=== PATIENT | female | born 1945 | race Caucasian/White ===

== ENCOUNTER 2024-05-14 17:12 | Emergency (ER) | payer MEDICARE, SELFPAY ==
[2024-05-14] VITALS (14 sets, daily range): BP systolic 96–152; BP diastolic 54–95; PULSE 83–94; O2SAT 95–100; BMI 32.0
--- NOTE | 2024-05-14 17:17 | ECG_ITS ---
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
--- NOTE | 2024-05-14 17:18 | ED_ITS ---
HPI - Neuro Symptoms/Deficit General Chief Complaint: Neuro Symptoms/Deficit Stated Complaint: CVA Time Seen by Provider: 05/14/24 17:16 Source: patient Mode of arrival: ambulance Limitations: no limitations History of Present Illness HPI Narrative: 78-year-old female presents from [facility] for left-sided facial numbness. At about 3:40 PM she saw some squiggles and then she developed a headache. She has a history of migraine headaches and sees a neurologist for that issue and was given her prescribed Nurtec. The squiggles and the headache are gone and she states that the left side of her face started to feel normal but it is now a little bit numb again. She has had no motor deficits in her extremities. 5 weeks ago she had a fall and had surgery on her leg and her arm for fractures. Related Data Allergies Allergy/AdvReac Type Severity Reaction Status Date / Time amoxicillin (From Augmentin) Allergy Mild Unknown Verified 05/14/24 17:19 cefuroxime Allergy Mild Unknown Verified 05/14/24 17:19 celecoxib (From Celebrex) Allergy Mild Unknown Verified 05/14/24 17:19 clavulanic acid (From Allergy Mild Unknown Verified 05/14/24 17:19 Augmentin) Review of Systems ROS Narrative A ten point review of systems is negative except as noted above. PFSH PFSH Social History Little interest or pleasure in doing things: not at all Feeling down, depressed, or hopeless: not at all Exam Narrative Exam Narrative: Nurses note and vital signs reviewed and patient is not hypoxic. General: The patient appears in no apparent distress. Patient is resting comfortably on cart. Skin: Warm, dry, no pallor noted. There is no rash noted. Head: Normocephalic, atraumatic Eye: Normal conjunctiva, no drainage, EOMI. Ears, Nose, Mouth, and Throat: oral mucosa is moist. Nares patent. Cardiovascular: Regular Rate and Rhythm Respiratory: Patient is in no distress, no accessory muscle use, lungs are clear to auscultation, no wheezing, rales or rhonchi GI: Soft and nontender Musculoskeletal: The patient has no evidence of calf tenderness, no pitting edema, symmetrical pulses noted bilaterally Neurological: A&O x4, normal speech; she is unable to lift her left leg because of the recent surgery but she is able to move her toes equally. Fingers also have full range of motion. Splint is present on her left arm. She does not have a facial droop. Cranial nerves II through XII are intact except she complains of some subjective numbness on the left side of her face. Psychiatric: Cooperative Constitutional Vital Signs, click to edit/add: Last Vital Signs Pulse 91 H 05/14/24 17:12 Resp 18 05/14/24 17:12 BP 152/95 H 05/14/24 17:12 Pulse Ox 97 05/14/24 17:12 O2 Del Method Room Air 05/14/24 17:12 Course Vital Signs Vital signs: Vital Signs Pulse Rate 91 H 05/14/24 17:12 Respiratory Rate 18 05/14/24 17:12 Blood Pressure 152/95 H 05/14/24 17:12 Pulse Oximetry 97 05/14/24 17:12 Oxygen Delivery Method Room Air 05/14/24 17:12 Pulse Rate 91 H 05/14/24 17:12 Respiratory Rate 18 05/14/24 17:12 Blood Pressure 152/95 H 05/14/24 17:12 Pulse Oximetry 97 05/14/24 17:12 Oxygen Delivery Method Room Air 05/14/24 17:12 MDM - Neuro Symptoms/Deficit MDM Narrative Medical decision making narrative: CAT scan is negative and her symptoms have resolved. She has a long history of migraine headaches and having neurologic symptoms with them. She sees a neurologist and has an appointment with him already scheduled for the day after tomorrow and she will keep that appointment. Findings are discussed thoroughly with the patient and her family and they are comfortable with her going back to the [place]. Treatment diagnosis and follow-up were discussed thoroughly. I have no clinical suspicion of a stroke. Differential Diagnosis Differential diagnosis: Likely cerebrovascular accident and other (Migraine headache) Lab Data Attestation: I reviewed the patient's lab results. Labs: Lab Results 05/14/24 Range/Units 17:16 WBC 9.9 (4.0-11.0) 10^3/uL RBC 3.69 L (4.20-5.40) 10^6/uL Hgb 11.0 L (12.0-16.0) g/dL Hct 34.2 L (36.0-48.0) % MCV 92.7 (81.0-99.0) fL MCH 29.8 (26.7-34.0) pg MCHC 32.2 (29.9-35.2) g/dL RDW 14.6 (11.0-15.0) % Plt Count 326 (150-450) 10^3/uL MPV 8.8 L (9.5-13.5) fL Neut % (Auto) 64.4 (43.0-75.0) % Lymph % (Auto) 25.0 (20.5-60.0) % [place] % (Auto) 7.9 (1.7-12.0) % Eos % (Auto) 1.6 (0.9-7.0) % Baso % (Auto) 0.5 (0.2-2.0) % Neut # (Auto) 6.4 (1.4-6.5) 10^3/uL Lymph # (Auto) 2.5 (1.2-3.8) 10^3/uL [place] # (Auto) 0.8 (0.3-0.8) 10^3/uL Eos # (Auto) 0.2 (0.0-0.7) 10^3/uL Baso # (Auto) 0.1 (0.0-0.1) 10^3/uL Abs Immat Gran (auto) 0.06 H (0.00-0.03) 10^3/uL Imm/Tot Granulo (auto) 0.6 H (0.0-0.5) % Sodium 137 (136-145) mmol/L Potassium 4.3 (3.5-5.1) mmol/L Chloride 101 (98-107) mmol/L Carbon Dioxide 28.5 (21.0-32.0) mmol/L Anion Gap 11.8 BUN 15.0 (7.0-18.0) mg/dL Creatinine 0.92 (0.55-1.02) mg/dL Est GFR ( Amer) >60 (>=60 mL/min/1.73m^2) Est GFR (Non-Af Amer) 59 L (>=60 mL/min/1.73m^2) BUN/Creatinine Ratio 16.3 Glucose 112 H (74-106) mg/dL Calcium 9.4 (8.5-10.1) mg/dL Imaging Data CT scan - head: Radiologist's impression: ITS Impressions Brain CT 05/14/24 17:19 IMPRESSION: Negative for hemorrhage, acute edema or other evidence of acute stroke. Findings of atrophy slightly increased from previous. Electronically authenticated by: REFUGIO DODSON Date: 05/14/2024 17:47 Discharge Plan Discharge Chief Complaint: Neuro Symptoms/Deficit Clinical Impression: Headache, migraine Patient Disposition: Home, Self-Care Time of Disposition Decision: 18:28 Condition: Good Mode of Transportation: Private Vehicle Print Language: Tajik Instructions: Migraine Headache (ED) Referrals: CHRISTINA JAMES [Primary Care Provider] - 1 week
--- NOTE | 2024-05-14 17:19 | CT_ITS ---
The [address] [address] Patient Name: STACIE DOMINGUEZ MRN: [id number] date: 1945 Sex: F Assigned Patient Location: ER Current Patient Location: ED.MAIN Accession/Order Number: [id number] Exam Date: 05/14/2024 17:20 Report Date: 05/14/2024 17:47 At the request of: YAHAIRA ESTRADA Procedure: CT stroke head/brain wo con EXAM: CT stroke head/brain wo con HISTORY: Left-sided facial numbness COMPARISON: Head CT 11/13/2015. MRI 11/27/2015. TECHNIQUE: Head CT noncontrast. Axial scans with reformatted coronal and sagittal images. Individualized radiation dose reduction used for this exam. FINDINGS: No evidence of hemorrhage, acute edema, mass or other new abnormality. Areas of deep white matter low-attenuation felt to be chronic. Streak artifact along the skull base limits the examination in these areas. Ventricles and sulci mildly prominent slightly increased from previous consistent with atrophy. No subdural or extra-axial collection or hematoma. Ventricles midline without mass effect or shift. No fracture or suspicious bone lesion. Visualized mastoid, middle ear cavities and sinuses clear. CT/CT stroke head/brain wo con IMPRESSION: Negative for hemorrhage, acute edema or other evidence of acute stroke. Findings of atrophy slightly increased from previous. Electronically authenticated by: REFUGIO DODSON Date: 05/14/2024 17:47
[2024-05-14 17:22] LABS: Basophils Absolute Auto 0.1 10^3/uL (0.0-0.1); Basophils Percent Auto 0.5 % (0.2-2.0); Eosinophils Absolute Auto 0.2 10^3/uL (0.0-0.7); Eosinophils Percent Auto 1.6 % (0.9-7.0); Hematocrit 34.2 % (36.0-48.0); Immature Granulocytes Abs Auto 0.06 10^3/uL (0.00-0.03); Immature Granulocytes Pct Auto 0.6 % (0.0-0.5); Lymphocytes Absolute Auto 2.5 10^3/uL (1.2-3.8); Mean Corpuscular HGB Conc 32.2 g/dL (29.9-35.2); Mean Corpuscular Hemoglobin 29.8 pg (26.7-34.0); Mean Corpuscular Volume 92.7 fL (81.0-99.0); Mean Platelet Volume 8.8 fL (9.5-13.5); Monocytes Absolute Auto 0.8 10^3/uL (0.3-0.8); Monocytes Percent Auto 7.9 % (1.7-12.0); Neutrophils Absolute Auto 6.4 10^3/uL (1.4-6.5); Neutrophils Percent Auto 64.4 % (43.0-75.0); Platelet Count 326 10^3/uL (150-450); Red Blood Count 3.69 10^6/uL (4.20-5.40); Red Cell Distribution Width 14.6 % (11.0-15.0); White Blood Count 9.9 10^3/uL (4.0-11.0)
[2024-05-14 17:31] LABS: Anion Gap 11.8; BUN Creatinine Ratio 16.3; Calcium 9.4 mg/dL (8.5-10.1); Carbon Dioxide 28.5 mmol/L (21.0-32.0); Chloride 101 mmol/L (98-107); Estimated GFR (African America >60 (>=60 mL/min/1.73m^2); Estimated GFR (Non-African Ame 59 (>=60 mL/min/1.73m^2); Glucose 112 mg/dL (74-106); Potassium 4.3 mmol/L (3.5-5.1); Sodium 137 mmol/L (136-145)
== END 2024-05-14 20:54 | disposition home or self-care (01) ==
PROVIDERS: Emergency Provider Emergency Medicine; PCP Internal Medicine
DX: G43.909 Migraine, unspecified, not intractable, without status migrainosus (principal); R20.0 Anesthesia of skin; Z91.81 History of falling
CPT/HCPCS: 36415; 70450; 80048; 85025; 93005; 99285